=== PATIENT | female | born 1935 | race Caucasian/White ===

== ENCOUNTER 2018-06-04 09:20 | Outpatient (CLI) | payer OTHER | END 2018-06-04 09:40 | disposition home or self-care (01) | LOC: OFIC 805 09:20 | DX: H61.23 Impacted cerumen, bilateral (principal); H90.41 Sensorineural hearing loss, unilateral, right ear, with unrestricted hearing on the contralateral side; R42 Dizziness and giddiness ==

== ENCOUNTER 2018-07-09 10:14 | Outpatient (CLI) | payer OTHER ==
[~2018-07-09] VITALS: Ht 152.4 cm; Wt 52.2 kg
== END 2018-07-09 10:30 | disposition home or self-care (01) ==
LOC: OFIC 805 10:14
DX: H90.42 Sensorineural hearing loss, unilateral, left ear, with unrestricted hearing on the contralateral side (principal); R42 Dizziness and giddiness

== ENCOUNTER 2018-07-21 08:57 | Outpatient (CLI) | payer OTHER | END 2018-07-21 08:58 | disposition home or self-care (01) | LOC: MAMO-SONO 08:57 | DX: Z12.31 Encounter for screening mammogram for malignant neoplasm of breast (principal); Z87.898 Personal history of other specified conditions; N60.11 Diffuse cystic mastopathy of right breast ==

== ENCOUNTER 2019-06-22 09:56 | Outpatient (CLI) | payer OTHER | END 2019-06-22 10:22 | disposition home or self-care (01) | LOC: NUCLEAR 09:56 | DX: M54.14 Radiculopathy, thoracic region (principal); M85.89 Other specified disorders of bone density and structure, multiple sites ==

== ENCOUNTER 2020-03-06 09:54 | Outpatient (CLI) | payer OTHER | END 2020-03-06 15:57 | disposition home or self-care (01) | LOC: LAB 09:54 | DX: Z20.828 Contact with and (suspected) exposure to other viral communicable diseases (principal); R04.2 Hemoptysis ==

== ENCOUNTER → 2020-03-06 | Outpatient (CLI) | payer OTHER | END | disposition home or self-care (01) | LOC: RAD 08:26 | PROVIDERS: ATTEND Internal Medicine | DX: A31.8 Other mycobacterial infections (principal); I11.9 Hypertensive heart disease without heart failure; R04.2 Hemoptysis ==

== ENCOUNTER → 2020-04-16 | Outpatient (CLI) | payer OTHER | END | disposition home or self-care (01) | LOC: NUCLEAR 06-22 10:00 → PPH VACUNA 08:35 | PROVIDERS: ATTEND Emergency Medicine Pediatric Emergency Medicine | DX: Z23 Encounter for immunization (principal) ==

== ENCOUNTER → 2020-05-07 | Outpatient (CLI) | payer OTHER | END | disposition home or self-care (01) | LOC: PPH VACUNA 15:00 | PROVIDERS: ATTEND Emergency Medicine Pediatric Emergency Medicine | DX: Z23 Encounter for immunization (principal) ==

== ENCOUNTER → 2020-10-22 | Outpatient (CLI) | payer OTHER ==
[~2020-10-22] MED LIST: BENICAR40 MG PO; NORVASC5 MG; SIMVASTATIN40 MG; SYNTHROID75 MCG PO; TENORMIN25 MG PO; ZETIA10 MG PO
== END | disposition home or self-care (01) ==
LOC: RAD 13:42
PROVIDERS: ATTEND Orthopaedic Surgery
DX: M25.551 Pain in right hip (principal)

== ENCOUNTER → 2020-11-26 08:33 | Outpatient (CLI) | payer OTHER | END | disposition home or self-care (01) | LOC: LAB 08:33 | PROVIDERS: ATTEND Orthopaedic Surgery | DX: D64.89 Other specified anemias (principal); E88.89 Other specified metabolic disorders; D68.8 Other specified coagulation defects; N39.0 Urinary tract infection, site not specified; Z22.322 Carrier or suspected carrier of Methicillin resistant Staphylococcus aureus; I49.8 Other specified cardiac arrhythmias; I10 Essential (primary) hypertension; Z76.89 Persons encountering health services in other specified circumstances ==

== ENCOUNTER → 2020-12-05 06:31 | Outpatient (CLI) | payer OTHER | END | disposition home or self-care (01) | LOC: LAB 06:31 | PROVIDERS: ATTEND Orthopaedic Surgery | DX: E21.4 Other specified disorders of parathyroid gland (principal); M85.88 Other specified disorders of bone density and structure, other site; E55.9 Vitamin D deficiency, unspecified; M81.8 Other osteoporosis without current pathological fracture; E56.1 Deficiency of vitamin K ==

== ENCOUNTER 2021-06-06 07:23 | Outpatient (CLI) | payer OTHER | END 2021-06-06 07:24 | disposition home or self-care (01) | LOC: NUCLEAR 07:23 | PROVIDERS: ATTEND Internal Medicine Gastroenterology | DX: K81.1 Chronic cholecystitis (principal) ==

== ENCOUNTER 2021-11-29 08:45 | Outpatient (CLI) | payer OTHER | END 2021-11-29 09:10 | disposition home or self-care (01) | LOC: RAD 08:45 | PROVIDERS: ATTEND Orthopaedic Surgery | DX: M25.551 Pain in right hip (principal) ==

== ENCOUNTER 2021-12-19 09:25 | Outpatient (CLI) | payer OTHER | END 2021-12-19 09:27 | disposition home or self-care (01) | LOC: NUCLEAR 09:25 | PROVIDERS: ATTEND Orthopaedic Surgery | DX: M81.0 Age-related osteoporosis without current pathological fracture (principal); Z91.013 Allergy to seafood ==

== ENCOUNTER 2022-01-09 13:23 | Outpatient (CLI) | payer OTHER | END 2022-01-09 13:28 | disposition home or self-care (01) | LOC: PPH VACUNA 13:23 | PROVIDERS: ATTEND Emergency Medicine Pediatric Emergency Medicine | DX: Z23 Encounter for immunization (principal) ==

== ENCOUNTER → 2022-05-30 | Emergency (ER) | payer OTHER ==
[~2022-05-30] VITALS: Ht 170.2 cm; Wt 52.2 kg
[~2022-05-30] MED LIST changes: +NABUMETONE500 MG PO
== END | disposition home or self-care (01) ==
LOC: ER 09:12
DX: S01.111A Laceration without foreign body of right eyelid and periocular area, initial encounter (principal); W18.30XA Fall on same level, unspecified, initial encounter; Y93.9 Activity, unspecified; Y92.018 Other place in single-family (private) house as the place of occurrence of the external cause; Y99.9 Unspecified external cause status; Z91.013 Allergy to seafood; I10 Essential (primary) hypertension; E03.9 Hypothyroidism, unspecified

== ENCOUNTER 2023-11-27 09:02 | Emergency (ER) | payer OTHER ==
[~2023-11-27] VITALS: Ht 152.4 cm; Wt 50.8 kg
[2023-11-27] MEDS ORDERED: BENZONATATE 200 MG CAPSULE PO ONE (09:30)
[2023-11-27 09:48] LABS: HEMATOCRIT 37.7 % (36.0-45.00); HEMOGLOBIN 12.8 g/dL (12.0-15.00); MEAN CELL VOLUME 90.5 fL (80.00-100.00); MEAN CORPUSCULAR HEMOGLOBIN 30.8 pg (27.00-32.0); PLATELET COUNT 179 K/uL (150-450); RED BLOOD COUNT 4.17 M/uL (4.00-6.00); RED CELL DISTRIBUTION WIDTH 15.4 % (11.5-14.5)
[2023-11-27] MEDS ORDERED: BENZONATATE200 M1 PO (10:06)
== END 2023-11-27 10:10 | disposition home or self-care (01) ==
LOC: ER 09:03
PROVIDERS: General Practice
DX: R05.9 Cough, unspecified (principal); Z20.822 Contact with and (suspected) exposure to COVID-19; I10 Essential (primary) hypertension; Z91.013 Allergy to seafood

== ENCOUNTER 2023-11-30 08:45 | Outpatient (CLI) | payer OTHER ==
[~2023-11-30 08:45] MED LIST changes: +BENZONATATE200 M1 PO
[2023-11-30 09:49] LABS: HEMATOCRIT 37.4 % (36.0-45.00); HEMOGLOBIN 12.8 g/dL (12.0-15.00); MEAN CELL VOLUME 89.6 fL (80.00-100.00); MEAN CORPUSCULAR HEMOGLOBIN 30.6 pg (27.00-32.0); MEAN CORPUSCULAR HGB CONC 34.2 g/dl (32.0-36.0); PLATELET COUNT 138 K/uL (150-450); RED BLOOD COUNT 4.18 M/uL (4.00-6.00); RED CELL DISTRIBUTION WIDTH 15.5 % (11.5-14.5)
[2023-11-30 09:51] LABS: PH,URINE 5.5 (5.0-8.0); URINE APPEARANCE Clear; URINE BILIRRUBIN Negative (NEGATIVE); URINE BLOOD Small; URINE COLOR Yellow; URINE GLUCOSE Negative (NEGATIVE); URINE KETONE 15 (NEGATIVE); URINE LEUKOCYTE Negative; URINE NITRATE Negative; URINE UROBILINOGEN 0.2 E.U./dl
[2023-11-30 09:56] LABS: URINE BACTERIA 404.3 uL (0.0-1933); URINE EPITHELIAL CELLS 36.7 uL (0.0-38.8); URINE RBC 17.2 uL (0.0-20.8); URINE WBC 6.1 uL (0.0-23.2)
[2023-11-30 10:00] LABS: URINE CAST 0.91 uL (0.0-1.40); URINE PROTEIN 100 (NEGATIVE)
[2023-11-30 10:18] LABS: CALCIUM 8.7 mg/dL (8.5-10.1); CREATININE SERUM 1.33 mg/dL (0.55-1.02); GFR 37.57; POTASSIUM 4.28 mEq/L (3.5-5.1)
== END 2023-11-30 20:20 | disposition home or self-care (01) ==
LOC: LAB 08:45
PROVIDERS: ATTEND Internal Medicine
DX: D68.09 Other von Willebrand disease (principal); Z11.52 Encounter for screening for COVID-19; N39.0 Urinary tract infection, site not specified; E11.9 Type 2 diabetes mellitus without complications

== ENCOUNTER 2024-01-18 08:41 | Emergency (ER) | payer OTHER ==
[~2024-01-18] VITALS: Ht 157.5 cm; Wt 50.8 kg
[2024-01-18] MEDS ORDERED: ORPHENADRINE CITRATE 30 MG/ML AMPUL IM ONE (09:15)
[2024-01-18] MEDS ORDERED: KETO10TA2 PO (10:28)
[2024-01-18] MEDS ORDERED: PEPCID AC20 MG PO (10:28)
== END 2024-01-18 10:37 | disposition home or self-care (01) ==
LOC: ER 08:42
DX: S22.31XA Fracture of one rib, right side, initial encounter for closed fracture (principal); W19.XXXA Unspecified fall, initial encounter; Y93.89 Activity, other specified; Y92.89 Other specified places as the place of occurrence of the external cause; Y99.9 Unspecified external cause status; J90 Pleural effusion, not elsewhere classified; Z91.013 Allergy to seafood; I10 Essential (primary) hypertension
CPT/HCPCS: 71046; 73502; 96372; 99283; J2360

== ENCOUNTER 2024-03-30 08:52 | Outpatient (CLI) | payer OTHER ==
[~2024-03-30 08:52] MED LIST changes: +KETO10TA2 PO; +PEPCID AC20 MG PO
== END 2024-03-30 08:53 | disposition home or self-care (01) ==
LOC: NUCLEAR 08:52
PROVIDERS: ATTEND Orthopaedic Surgery
DX: M81.0 Age-related osteoporosis without current pathological fracture (principal)